=== PATIENT | female | born 1990 | race Caucasian/White ===

== ENCOUNTER 2017-08-15 00:01 | Inpatient (IN) | payer OTHER ==
[~2017-08-15] VITALS: Ht 172.7 cm; Wt 110.2 kg
[2017-08-15] MEDS ORDERED: OXYTOCIN/NORMAL SALINE 1,000 ML IV SCH (00:28)
[2017-08-15] MEDS ORDERED: MISOPROSTOL 100 MCG TABLET (CYTOTEC) PO PRN (00:30)
[2017-08-15] MEDS ORDERED: NALBUPHINE HCL 10 MG/ML AMP IVP PRN (00:30)
[2017-08-15] MEDS ORDERED: TERBUTALINE SULFATE 1 MG/ML VIAL SUBCUT ONE (00:30)
[2017-08-15] MEDS ORDERED: AMPICILLIN SODIUM 2 GM in NS 100 ML IV ONE (00:30)
[2017-08-15 00:54] LABS: BASOPHILS % (AUTO) 0.6 % (0.0-2.0); EOSINOPHILS # (AUTO) 0.1 K/uL (0.0-0.4); EOSINOPHILS % (AUTO) 1.1 % (0.0-4.0); HEMATOCRIT 31.7 % (36-48); HEMOGLOBIN 10.1 g/dL (12.0-16.0); LYMPHOCYTES # (AUTO) 1.4 K/uL (1.0-5.5); LYMPHOCYTES % (AUTO) 17.3 % (20.5-51.5); MEAN CORPUSCULAR HEMOGLOBIN 27 pg (27-31); MEAN CORPUSCULAR HGB CONC 32 % (32-36); MEAN CORPUSCULAR VOLUME 84 fL (79.0-98.0); MONOCYTES # (AUTO) 0.6 K/uL (0.0-1.0); PLATELET COUNT (AUTO) 278 K/uL (130-430); RED BLOOD CELL COUNT(AUTO) 3.76 MIL/uL (4.2-6.2); RED CELL DISTRIBUTION WIDTH 15.4 % (9.0-15.0); WHITE BLOOD COUNT (AUTO) 8.1 K/uL (4.8-10.8)
[2017-08-15] MEDS: LR 1,000 ML IV SCH ×3 (01:11→22:38)
[2017-08-15 02:04] VITALS: BP_SYST 109
[2017-08-15] MEDS ORDERED: AMPICILLIN SODIUM 2 GM VIAL ONE (05:09)
[2017-08-15] MEDS: AMPICILLIN SODIUM 1 GM in NS 50 ML IV SCH ×4 (09:31→21:30)
[2017-08-15] MEDS ORDERED: fentaNYL CITRATE/PF 100 MCG/2 ML AMP ONE (13:56)
[2017-08-15] MEDS ORDERED: FENT2mCg/mL-ROPIVA0.2%/NS EPID 150 ML EP ONE (13:57)
[2017-08-15] MEDS ORDERED: LR 500 ML IV ONE (14:08)
[2017-08-15] MEDS ORDERED: fentaNYL CITRATE/PF 100 MCG/2 ML AMP IVP ONE (14:15)
[2017-08-15] MEDS ORDERED: ePHEDrine sulfate 50 MG/ML VIAL IVP PRN (14:15)
[2017-08-15] MEDS ORDERED: FENT2mCg/mL-ROPIVA0.2%/NS EPID 150 ML EP SCH (14:15)
[2017-08-15] MEDS ORDERED: AMPICILLIN SODIUM 1 GM VIAL ONE ×2 (17:43→21:30)
[2017-08-16] MEDS ORDERED: AMPICILLIN SODIUM 1 GM VIAL ONE (01:10)
[2017-08-16] MEDS ORDERED: fentaNYL CITRATE/PF 100 MCG/2 ML AMP IVP ONE (03:15)
[2017-08-16] MEDS ORDERED: BUPIVACAINE /PF 0.25% 30 ML VIAL INJ ONE (03:15)
[2017-08-16] MEDS ORDERED: fentaNYL CITRATE/PF 100 MCG/2 ML AMP ONE (03:15)
[2017-08-16] MEDS: AMPICILLIN SODIUM 1 GM in NS 50 ML IV SCH (07:07)
[2017-08-16] MEDS ORDERED: ACETAMINOPHEN 325 MG TABLET PO PRN (12:15)
[2017-08-16] MEDS ORDERED: GENTAMICIN 100 mg/50 mL NS 50 ML IV ONE (12:15)
[2017-08-16] MEDS ORDERED: AMPICILLIN SODIUM 1 GM in NS 50 ML IV ONE (14:00)
[2017-08-16] MEDS ORDERED: ONDANSETRON HCL 4 MG/2 ML VIAL IVP ONE (14:45)
[2017-08-16] MEDS ORDERED: CEFAZOLIN 2 GM IVPB PREMIX 50 ML IV ONE (14:45)
[2017-08-16] MEDS ORDERED: OXYTOCIN 10 UNIT/ML VIAL IV ONE (14:45)
[2017-08-16] MEDS ORDERED: fentaNYL CITRATE 250 MCG/5 ML AMP IV ONE (14:45)
[2017-08-16] MEDS ORDERED: SUCCINYLCHOLINE CHLORIDE 20 MG/ML(QUELICIN) IVP ONE (14:45)
[2017-08-16] MEDS ORDERED: LIDOCAINE 2%, 20 ML MDV INJ ONE (14:45)
[2017-08-16] MEDS ORDERED: PROPOFOL 200MG/ 20ML VIAL (DIPRIVAN) IV ONE (14:45)
[2017-08-16] MEDS ORDERED: NS IRRIG SOLN 1000 ML IR ONE (14:45)
[2017-08-16] MEDS ORDERED: LR 1,000 ML IV.SOLN IV ONE (14:45)
[2017-08-16] MEDS ORDERED: DEXAMETHASONE SOD PHOSPHATE 4 MG/ML VIAL IVP ONE (14:45)
[2017-08-16] MEDS ORDERED: MORPHINE SULFATE 10MG/10ML PF AMP EP ONE (14:45)
[2017-08-16] MEDS ORDERED: METHYLERGONOVINE MALEATE 0.2 MG/ML AMP IM ONE ×2 (14:45→17:00)
[2017-08-16] MEDS ORDERED: SEVOFLURANE 15 MIN GAS INH ONE (14:45)
[2017-08-16] MEDS ORDERED: NALOXONE HCL 1 MG in NACL 0.9% 1,000 ML IV PRN ×4 (15:54)
[2017-08-16] MEDS ORDERED: LR 1,000 ML IV SCH ×2 (15:54→17:55)
[2017-08-16] MEDS ORDERED: MEPERIDINE HCL/PF 25 MG/ML DISP.SYRIN IVP PRN ×2 (16:00)
[2017-08-16] MEDS ORDERED: KETOROLAC TROMETHAMINE 60 MG/2 ML VIAL IM PRN (16:00)
[2017-08-16] MEDS ORDERED: DIPHENHYDRAMINE INJ 50 MG/ML VIAL IVP PRN (16:00)
[2017-08-16] MEDS ORDERED: ONDANSETRON HCL 4 MG/2 ML VIAL IVP PRN (16:00)
[2017-08-16] MEDS ORDERED: NALOXONE HCL 0.4 MG/ML AMP (NARCAN) IVP PRN ×3 (16:00)
[2017-08-16] MEDS ORDERED: DIPHENHYDRAMINE HCL 50 MG CAPSULE PO PRN (16:00)
[2017-08-16] MEDS ORDERED: HYDROmorphone 1 MG INJ. 1 MG/ML AMPUL IVP PRN (16:00)
[2017-08-16] MEDS ORDERED: HYDROmorphone 2 MG/ML VIAL IVP PRN ×3 (16:00→18:15)
[2017-08-16] MEDS ORDERED: METHYLERGONOVINE MALEATE 0.2 MG/ML AMP ONE (16:45)
[2017-08-16] MEDS ORDERED: HEMABATE 250MCG/ML VIAL AMP IM ONE ×2 (16:52)
[2017-08-16 17:22] LABS: HEMATOCRIT 25.1 % (36-48); HEMOGLOBIN 8.3 g/dL (12.0-16.0); MEAN CORPUSCULAR HEMOGLOBIN 28 pg (27-31); MEAN CORPUSCULAR HGB CONC 33 % (32-36); MEAN CORPUSCULAR VOLUME 85 fL (79.0-98.0); PLATELET COUNT (AUTO) 188 K/uL (130-430); RED BLOOD CELL COUNT(AUTO) 2.97 MIL/uL (4.2-6.2); RED CELL DISTRIBUTION WIDTH 15.5 % (9.0-15.0); WHITE BLOOD COUNT (AUTO) 12.8 K/uL (4.8-10.8)
[2017-08-16 17:35] VITALS: BP_SYST 120
[2017-08-16] MEDS ORDERED: HYDROmorphone 2 MG/ML VIAL ONE ×2 (17:42→18:09)
[2017-08-16 17:48] LABS: PROTHROMBIN TIME 10.4 SECS (9.5-12.5)
[2017-08-16 17:53] LABS: FIBRINOGEN 296 mg/dL (200-400)
[2017-08-16] MEDS ORDERED: OXYTOCIN/NORMAL SALINE 1,000 ML IV ONE (17:55)
[2017-08-16] MEDS ORDERED: AMPICILLIN SODIUM 2 GM in NS 100 ML IV SCH (18:00)
[2017-08-16] MEDS ORDERED: BISACODYL 10 MG/SUPPOSITORY RC PRN (18:00)
[2017-08-16] MEDS ORDERED: MEASLES,MUMPS&RUBELLA VACC/PF 12500 UNIT/0.5 ML VIAL SUBQ PRN (18:00)
[2017-08-16] MEDS ORDERED: RHO(D) IMMUNE GLOBULIN/MALTOSE 1500 UNITS/1.3 ML (WINHRO) IM PRN (18:00)
[2017-08-16] MEDS ORDERED: SIMETHICONE 80 MG TAB.CHEW PO PRN (18:00)
[2017-08-16] MEDS ORDERED: SENNOSIDES/DOCUSATE SODIUM 1 TAB TABLET(SENOKOT-S) PO PRN (18:00)
[2017-08-16] MEDS ORDERED: ANUSOL 1 EA SUPP.RECT (PREPARATION H) RC PRN (18:00)
[2017-08-16 18:15] LABS: BAND % (MANUAL) 15 % (0-6); BASOPHILS % (MANUAL) 0 % (0-2); EOSINOPHILS % (MANUAL) 0 % (0-7); LYMPHOCYTES % (MANUAL) 3 % (20-46); MONOCYTES % (MANUAL) 6 % (0-11)
[2017-08-16] MEDS ORDERED: OXYTOCIN/NORMAL SALINE 0 ML IV ONE (18:17)
[2017-08-16] MEDS ORDERED: GENTAMICIN 80 mg/100 mL NS 100 ML IV SCH (21:00)
[2017-08-16] MEDS ORDERED: TEMAZEPAM 15 MG CAPSULE PO PRN (21:00)
[2017-08-16] MEDS ORDERED: D5LR 1,000 ML IV SCH (22:30)
[2017-08-16] MEDS: CEFAZOLIN 1 GM IVPB PREMIX 50 ML IV SCH (23:22)
[2017-08-17] MEDS: KETOROLAC TROMETHAMINE 30 MG VIAL IVP PRN ×2 (04:30→10:27)
[2017-08-17] MEDS: CEFAZOLIN 1 GM IVPB PREMIX 50 ML IV SCH ×3 (06:09→18:00)
[2017-08-17] MEDS: OXYCODONE/ACETAMINOPHEN 5-325 TABLET PO PRN ×3 (07:00→21:31)
[2017-08-17] MEDS ORDERED: LIDOCAINE PF 1% 30ML(POUR BTL) INJ ONE (07:00)
[2017-08-17 07:20] LABS: BASOPHILS % (AUTO) 0.1 % (0.0-2.0); EOSINOPHILS # (AUTO) 0.1 K/uL (0.0-0.4); EOSINOPHILS % (AUTO) 0.5 % (0.0-4.0); HEMATOCRIT 28.4 % (36-48); LYMPHOCYTES # (AUTO) 0.8 K/uL (1.0-5.5); LYMPHOCYTES % (AUTO) 6.8 % (20.5-51.5); MEAN CORPUSCULAR HEMOGLOBIN 27 pg (27-31); MEAN CORPUSCULAR HGB CONC 32 % (32-36); MEAN CORPUSCULAR VOLUME 84 fL (79.0-98.0); MONOCYTES # (AUTO) 0.7 K/uL (0.0-1.0); MONOCYTES % (AUTO) 6.3 % (1.7-9.3); NEUTROPHILS # (AUTO) 10.1 K/uL (1.8-7.7); NEUTROPHILS % (AUTO) 86.3 % (40.0-70.0); PLATELET COUNT (AUTO) 210 K/uL (130-430); RED BLOOD CELL COUNT(AUTO) 3.38 MIL/uL (4.2-6.2); RED CELL DISTRIBUTION WIDTH 15.1 % (9.0-15.0); WHITE BLOOD COUNT (AUTO) 11.7 K/uL (4.8-10.8)
[2017-08-17] MEDS ORDERED: LIDOCAINE 1.5% MPF 150 MG/10 ML AMP INJ ONE (07:39)
[2017-08-17] MEDS: DOCUSATE SODIUM 100 MG CAPSULE PO PRN ×2 (09:12→21:32)
[2017-08-17] MEDS ORDERED: OXYCODONE/ACETAMINOPHEN 5-325 TABLET PO PRN (12:00)
[2017-08-17] MEDS ORDERED: ACETAMINOPHEN 325 MG TABLET PO PRN (12:00)
[2017-08-17] MEDS ORDERED: HYDROmorphone 2 MG/ML VIAL IVP ONE (12:45)
[2017-08-17] MEDS: IBUPROFEN 600 MG TABLET PO SCH (18:00)
[2017-08-18] MEDS: IBUPROFEN 600 MG TABLET PO SCH ×3 (06:32→18:15)
[2017-08-18] MEDS: OXYCODONE/ACETAMINOPHEN 5-325 TABLET PO PRN ×3 (13:30→20:47)
[2017-08-18] MEDS ORDERED: SERTRALINE HCL 50 MG TABLET PO SCH (18:00)
[2017-08-19] MEDS: OXYCODONE/ACETAMINOPHEN 5-325 TABLET PO PRN ×2 (02:52→10:24)
[2017-08-19] MEDS: IBUPROFEN 600 MG TABLET PO SCH ×2 (06:06→12:07)
[2017-08-19] MEDS ORDERED: SERTRALINE HCL 50 MG TABLET PO SCH (09:00)
[2017-08-19] MEDS: DOCUSATE SODIUM 100 MG CAPSULE PO PRN (10:26)
== END 2017-08-19 13:54 | disposition home or self-care (01) | DRG 765 ==
LOC: SPU 00:01
PROVIDERS: ADMIT Obstetrics & Gynecology; ATTEND Obstetrics & Gynecology
PROC: 3E0R3BZ Introduction of Anesthetic Agent into Spinal Canal, Percutaneous Approach (ICD-10-PCS; 2017-08-15)
PROC: 00HU33Z Insertion of Infusion Device into Spinal Canal, Percutaneous Approach (ICD-10-PCS; 2017-08-15)
PROC: 30233N1 Transfusion of Nonautologous Red Blood Cells into Peripheral Vein, Percutaneous Approach (ICD-10-PCS; 2017-08-16)
PROC: 10D00Z1 Extraction of Products of Conception, Low, Open Approach (ICD-10-PCS; principal; 2017-08-16 14:30)
PROC: 30233S1 Transfusion of Nonautologous Globulin into Peripheral Vein, Percutaneous Approach (ICD-10-PCS; 2017-08-17)
PROC: 3E0134Z Introduction of Serum, Toxoid and Vaccine into Subcutaneous Tissue, Percutaneous Approach (ICD-10-PCS; 2017-08-17)
DX: O76 Abnormality in fetal heart rate and rhythm complicating labor and delivery (principal); O41.1230 Chorioamnionitis, third trimester, not applicable or unspecified; O72.2 Delayed and secondary postpartum hemorrhage; E66.01 Morbid (severe) obesity due to excess calories; O32.1XX0 Maternal care for breech presentation, not applicable or unspecified; J45.909 Unspecified asthma, uncomplicated; O99.344 Other mental disorders complicating childbirth; O99.824 Streptococcus B carrier state complicating childbirth; O99.52 Diseases of the respiratory system complicating childbirth; F41.9 Anxiety disorder, unspecified; O77.0 Labor and delivery complicated by meconium in amniotic fluid; O48.0 Post-term pregnancy; F32.9 Major depressive disorder, single episode, unspecified; O99.214 Obesity complicating childbirth; Z68.36 Body mass index [BMI] 36.0-36.9, adult; O66.5 Attempted application of vacuum extractor and forceps; Z3A.40 40 weeks gestation of pregnancy; Z37.0 Single live birth; Z82.0 Family history of epilepsy and other diseases of the nervous system; Z23 Encounter for immunization
CPT/HCPCS: 36415; 74000-TC; 81002-TC; 85007; 85025; 85027; 85379; 85384-TC; 85610-TC; 85730-TC; 86592; 86870; 86886; 86900; 86901; 86920; 88307; 94760; A4618; J0290; J0330; J0690; J1100; J1170; J1580; J1885; J2001; J2210; J2274; J2300; J2310; J2405; J2590; J2704; J2790; J3010; J7030; J7120; P9021

== ENCOUNTER 2017-09-09 09:13 | Day surgery (SDC) | payer BC, OTHER ==
[~2017-09-09] VITALS: Ht 172.7 cm; Wt 99.8 kg
[2017-09-09 10:03] LABS: BILIRUBIN,URINE NEGATIVE (NEGATIVE); BLOOD, URINE 3+ (NEGATIVE); CLARITY/URINE SL HAZY (CLEAR); COLOR,URINE YELLOW (YELLOW); GLUCOSE,URINE NEGATIVE (NEGATIVE); KETONES,URINE NEGATIVE (NEGATIVE); LEUKOCYTE ESTERASE ,URINE 3+ (NEGATIVE); NITRITE, URINE NEGATIVE (NEGATIVE); PH,URINE 5.5 (5.0-8.0); PROTEIN URINE TRACE (NEGATIVE); UROBILINOGEN,URINE 0.2 (0.2-1.0)
[2017-09-09] MEDS ORDERED: POLYMYXIN 500,000/BACIT.10,000 UNITS in NS IRR 1 L IR ONE ×2 (10:21→11:08)
[2017-09-09 10:22] LABS: RBC,URINE 20-50 /HPF (0-3)
[2017-09-09 10:23] LABS: BACTERIA,URINE MANY /HPF (None Seen); MUCUS,URINE 1+ /LPF (None Seen); WBC,URINE 20-50 /HPF (0-3)
[2017-09-09 10:32] LABS: BASOPHILS % (AUTO) 0.4 % (0.0-2.0); EOSINOPHILS # (AUTO) 0.2 K/uL (0.0-0.4); HEMATOCRIT 33.3 % (36-48); HEMOGLOBIN 10.7 g/dL (12.0-16.0); LYMPHOCYTES # (AUTO) 1.2 K/uL (1.0-5.5); LYMPHOCYTES % (AUTO) 13.6 % (20.5-51.5); MEAN CORPUSCULAR HEMOGLOBIN 27 pg (27-31); MEAN CORPUSCULAR HGB CONC 32 % (32-36); MEAN CORPUSCULAR VOLUME 83 fL (79.0-98.0); MONOCYTES # (AUTO) 0.5 K/uL (0.0-1.0); MONOCYTES % (AUTO) 5.3 % (1.7-9.3); NEUTROPHILS # (AUTO) 6.7 K/uL (1.8-7.7); NEUTROPHILS % (AUTO) 78.7 % (40.0-70.0); PLATELET COUNT (AUTO) 598 K/uL (130-430); RED BLOOD CELL COUNT(AUTO) 4.04 MIL/uL (4.2-6.2); RED CELL DISTRIBUTION WIDTH 16.1 % (9.0-15.0); WHITE BLOOD COUNT (AUTO) 8.6 K/uL (4.8-10.8)
[2017-09-09] MEDS ORDERED: LR 1,000 ML IV SCH (10:48)
[2017-09-09] MEDS ORDERED: MEPERIDINE HCL/PF 25 MG/ML DISP.SYRIN IVP PRN ×2 (11:00)
[2017-09-09] MEDS ORDERED: HYDROmorphone 1 MG INJ. 1 MG/ML AMPUL IVP PRN (11:00)
[2017-09-09] MEDS ORDERED: KETOROLAC TROMETHAMINE 30 MG VIAL IVP PRN (11:00)
[2017-09-09] MEDS ORDERED: ONDANSETRON HCL 4 MG/2 ML VIAL IVP PRN ×2 (11:00→12:15)
[2017-09-09] MEDS ORDERED: HYDROmorphone 2 MG/ML VIAL IVP PRN ×2 (11:00)
[2017-09-09] MEDS ORDERED: PROMETHAZINE HCL 25 MG/ML AMP IM PRN (12:15)
[2017-09-09] MEDS ORDERED: HYDROmorphone 2 MG TAB PO PRN (12:15)
[2017-09-09] MEDS ORDERED: OXYCODONE/ACETAMINOPHEN 5-325 TABLET PO PRN (12:15)
[2017-09-09] MEDS ORDERED: fentaNYL CITRATE/PF 100 MCG/2 ML AMP IVP ONE (13:10)
[2017-09-09] MEDS ORDERED: SEVOFLURANE 15 MIN GAS INH ONE (13:10)
[2017-09-09] MEDS ORDERED: MIDAZOLAM HCL 5 MG/5 ML VIAL IVP ONE (13:10)
[2017-09-09] MEDS ORDERED: CLINDAMYCIN PHOSPHATE 600 mg/50mL D5W IV ONE (13:10)
[2017-09-09] MEDS ORDERED: ONDANSETRON HCL 4 MG/2 ML VIAL IVP ONE (13:10)
[2017-09-09] MEDS ORDERED: fentaNYL CITRATE 250 MCG/5 ML AMP IV ONE (13:10)
[2017-09-09] MEDS ORDERED: PROPOFOL 200MG/ 20ML VIAL (DIPRIVAN) IV ONE (13:10)
[2017-09-09] MEDS ORDERED: KETOROLAC TROMETHAMINE 30 MG VIAL IVP ONE (13:10)
[2017-09-09] MEDS ORDERED: LR 1,000 ML IV.SOLN IV ONE (13:10)
[2017-09-09 13:31] VITALS: BP_SYST 114
[2017-09-09] MEDS ORDERED: OXYCODONE/ACETAMINOPHEN 5-325 TABLET ONE (14:25)
== END 2017-09-09 17:10 | disposition home or self-care (01) ==
LOC: SDS 09:13
PROVIDERS: ATTEND Obstetrics & Gynecology
DX: O86.0 Infection of obstetric surgical wound (principal); O99.53 Diseases of the respiratory system complicating the puerperium; J45.909 Unspecified asthma, uncomplicated; O99.345 Other mental disorders complicating the puerperium; F41.9 Anxiety disorder, unspecified; Z88.2 Allergy status to sulfonamides; Z98.890 Other specified postprocedural states
CPT/HCPCS: 11000; 36415; 81000; 85025; 86870; 86886; 86900; 86901; 87070; 87075; 87086; 87186; 88305; J1885; J2250; J2405; J2704; J3010 ×2; J3490; J7120